=== PATIENT | female | born 1945 | race African-American/Black ===

== ENCOUNTER → 2017-06-15 | Outpatient (CLI) | payer MEDICARE | END | disposition home or self-care (01) | LOC: US 07:32 | PROVIDERS: ATTEND Internal Medicine Gastroenterology | DX: R10.9 Unspecified abdominal pain (principal); R11.0 Nausea; R63.4 Abnormal weight loss; Z87.19 Personal history of other diseases of the digestive system | CPT/HCPCS: 76700 ==

== ENCOUNTER 2021-07-15 17:15 | Emergency (ER) | payer MEDICARE ==
[~2021-07-15] VITALS: Ht 167.6 cm; Wt 70.0 kg
[2021-07-15 21:39] LABS: BASOPHILS % 0.8 % (0.0-2.0); EOSINOPHILS % 1.7 % (0.0-5.0); HEMATOCRIT. 43.5 % (36.0-48.0); HEMOGLOBIN. 14.8 g/dL (12.0-16.0); LYMPHOCYTES % 22.8 % (20.0-50.0); MEAN CORPUSCULAR HEMOGLOBIN 36.7 pg (28.0-32.0); MEAN CORPUSCULAR VOLUME 108.2 fL (81.0-99.0); NEUTROPHILS % 62.7 % (40.0-76.0); PLATELET 266 x1000/uL (130-400); RED BLOOD CELL COUNT 4.02 mill/uL (4.2-5.4)
[2021-07-15 21:48] LABS: CHLORIDE 109 mEq/L (98-107)
[2021-07-15] MEDS ORDERED: ASPIRIN 81MG TABLET PO NR (22:15)
[2021-07-15 22:30] VITALS: BP 162/79
== END 2021-07-15 23:30 | disposition home or self-care (01) ==
LOC: ER 17:15 → CANBEDREQ 07-16 21:40
DX: R00.2 Palpitations (principal); R42 Dizziness and giddiness; R06.02 Shortness of breath; J45.909 Unspecified asthma, uncomplicated; G43.909 Migraine, unspecified, not intractable, without status migrainosus; Z98.890 Other specified postprocedural states; Z20.822 Contact with and (suspected) exposure to COVID-19
CPT/HCPCS: 36415; 71045; 80053; 83880; 84484; 85025; 87426; 93005; 99285